=== PATIENT | female | born 1940 | race Caucasian/White ===

== ENCOUNTER 2020-04-22 15:32 | Outpatient (CLI) | payer MEDICARE, OTHER, SELFPAY ==
--- NOTE | 2020-04-22 15:52 | MR_ITS ---
WS: [id number] MRI LUMBAR SPINE NONCONTRAST TECHNIQUE: Sagittal T1, T2 and STIR imaging. Axial T1 and T2 imaging. CLINICAL INFORMATION: LUMBAR PAIN WITH RADIATION DOWN BOTH LEGS COMPARISON: None. FINDINGS: Mild lumbar curve. Anterior wedging L1. Mild compression superior endplates at L1, L2, L3, L4, and L5 . Compression at L1 and L2 is chronic. Acute compression with edema involving the superior endplates at L3, L4 and L5. Approximately 20% loss vertebral body height L3 and 50% at L4. Minimal compression superior endplate L5. L1-L2: Mild disc bulging with slight effacement of ventral thecal sac. Mild central canal stenosis. S nilson canal and foramen are patent. Mild facet arthropathy. L2-L3: Mild annular bulging. Slight narrowing of the subarticular recess bilaterally. Mild/moderate c entral canal stenosis due to disc bulging and prominent epidural fat. Mild right and no significant l eft foraminal narrowing. Mild facet arthropathy. Minimal retropulsion posterior superior endplate L2. L3-L4: Mild disc bulging with slight effacement of ventral thecal sac. Mild right and no significant left foraminal narrowing. Moderate central canal stenosis with prominent epidural fat L4-L5: Moderate central canal stenosis with circumferential narrowing of the thecal sac due to promin ent epidural fat and mild disc osteophyte complex. Moderate facet arthropathy. Moderate left and mild right foraminal narrowing. L5-S1: Tiny left pericentral disc osteophyte protrusion. Mild to moderate and mild left foraminal davy rowing. Moderate facet arthropathy. Visualized pelvic bony structures: Normal. Paravertebral soft tissues: Normal. MR/MR lumbar spine wo con* [id number] IMPRESSION: 1. Mild lumbar curve. 2. Acute compression superior endplates L3,L4 and L5 with diffuse edema. This is worse at L4 with loss of approximately 50% vertebral body height. Loss of ap proximately 20% vertebral body height L3. Only minimal compression L5. 3. [id number] central canal stenosis L1-2 due to small central disc prot rusion in combination with prominent epidural fat. 4. Moderate central canal stenosis with circumferential narrowing of the theca l sac worse at L3-L4 and L4-L5. 5. Mild right L3-4, moderate left L4-5, and mild to moderate right L5-S1 mynor inal narrowing. 6. Moderate facet arthropathy L3-L5.
== END 2020-04-22 15:33 | disposition home or self-care (01) ==
LOC: RADSHAW 15:32
PROVIDERS: PCP Nurse Practitioner Family; Visit Provider Nurse Practitioner Family
DX: M54.16 Radiculopathy, lumbar region (principal); S32.030A Wedge compression fracture of third lumbar vertebra, initial encounter for closed fracture; S32.040A Wedge compression fracture of fourth lumbar vertebra, initial encounter for closed fracture; S32.050A Wedge compression fracture of fifth lumbar vertebra, initial encounter for closed fracture; M48.061 Spinal stenosis, lumbar region without neurogenic claudication; M51.26 Other intervertebral disc displacement, lumbar region; M47.816 Spondylosis without myelopathy or radiculopathy, lumbar region; X58.XXXA Exposure to other specified factors, initial encounter
CPT/HCPCS: 72148